=== PATIENT | female | born 1965 | race Caucasian/White ===

== ENCOUNTER 2017-01-13 22:29 | Emergency (ER) | payer MEDICAID ==
--- NOTE | 2017-01-14 19:14 | ER ---
ADMIT: 01/13/2017 RM/LOC: ER [facility] MR#: [id number] [address] [place], [place] [address] [address] [place] [address] Emergency Room Report SEX: F AGE: 51 : 1965 DATE: 01/13/2017 HISTORY OF PRESENT ILLNESS: The patient is a 51-year-old female with past medical history of bipolar, schizophrenia, came to the ER with chief complaint of 2 days of left ankle pain. The patient was able to ambulate without difficulty on the left ankle and denies any trauma. The patient states the pain is mostly on the lateral malleolus area. The patient denies similar pain in the past. PHYSICAL EXAMINATION: GENERAL: The patient was in no obvious pain or distress, ambulating without difficulty. Alert, oriented to person, place, and time, afebrile. HEAD AND NECK: Exam is noncontributory. CHEST: Clear bilaterally. ABDOMEN: Soft. NEUROVASCULAR: Normal. EXTREMITIES: Normal range of motion in all the joints including the left ankle joint are normal actively and passively without any pain or discomfort. There is no swelling over the area. There is no tenderness over the lateral and medial malleolus. IMAGING DATA: X-ray of the left ankle did not show any abnormalities or pathology or fracture. PLAN: The patient is stable to be discharged to home with return precautions, and follow up with the primary doctor as needed. The patient acknowledged she understood the plan and agreed with it. Jovanny Medina MD/ wesly JOB #: [id number] CC: Jovanny Medina MD, Attending Physician Nhan Davis MD, Family Physician
== END 2017-01-14 00:42 | disposition home or self-care (01) ==
LOC: ER 22:29
DX: M25.562 Pain in left knee (principal); F31.9 Bipolar disorder, unspecified; F20.9 Schizophrenia, unspecified; Z90.710 Acquired absence of both cervix and uterus; Z88.2 Allergy status to sulfonamides; Z88.0 Allergy status to penicillin; Z88.1 Allergy status to other antibiotic agents

== ENCOUNTER 2017-01-27 01:47 | Emergency (ER) | payer MEDICAID ==
--- NOTE | 2017-01-29 04:09 | ER ---
ADMIT: 01/27/2017 RM/LOC: ER [facility] MR#: [id number] [address] [address] [address] [place] [place], [place] [id number] Emergency Room Report SEX: F AGE: 51 : 1965 DATE: 01/27/2017 CHIEF COMPLAINT: Sore throat. HISTORY OF PRESENT ILLNESS: The patient is a 51-year-old female, comes in with complaints of sore throat for the past 4 days. She states she does have some sinus drainage also. States she had, had some similar symptoms a couple weeks ago, was given a Z-Jay at her primary care physician's office at that time. She wondered if she has another one here today. She states that she has some bilateral ear pain, runny nose. She is not having any nausea, vomiting, or diarrhea and denies any chest pain, or cough. PAST MEDICAL HISTORY: Schizoaffective disorder, bipolar, PTSD, high blood pressure, COPD, osteoporosis. MEDICATIONS: See nurse's note. ALLERGIES: SEE NURSE'S NOTE. PHYSICAL EXAMINATION: VITAL SIGNS: Normal. She is afebrile. HEENT: Head is atraumatic. Pupils are equal, round, reactive to light. Posterior oropharynx is nonerythematous. She has some very mild edema of her mucosal membrane. No purulent drainage. No tenderness over her maxillary sinuses. TMs are normal bilaterally. NECK: Supple. There is no lymphadenopathy. HEART: Regular rate and rhythm. LUNGS: Clear to auscultation. SKIN: Warm and dry. MEDICAL DECISION MAKING: Based on the patient's complaints of my exam, I believe she likely has a viral infection. I informed her that antibiotics are not going to help with this, and she is not given a prescription for antibiotic at this time. She is discharged home to use Tylenol or Motrin for pain and any fevers. She is to drink plenty of fluids and she is told she can use salt water gargles and Chloraseptic Throat [place] for her sore throat. She is to follow up with Dr. Davis as needed. DIAGNOSIS: Viral syndrome. Ace Menjivar MD/ wesly JOB #: [id number] CC: Ace Menjivar MD, Attending Physician Nhan Davis MD, Family Physician
== END 2017-01-27 02:55 | disposition home or self-care (01) ==
LOC: ER 01:47
DX: B34.9 Viral infection, unspecified (principal); J44.9 Chronic obstructive pulmonary disease, unspecified; F25.0 Schizoaffective disorder, bipolar type

== ENCOUNTER → 2017-02-09 | Outpatient (CLI) | payer MEDICAID | END | disposition home or self-care (01) | LOC: RAD.S 02-04 15:00 | DX: R10.11 Right upper quadrant pain (principal); K80.20 Calculus of gallbladder without cholecystitis without obstruction; K76.0 Fatty (change of) liver, not elsewhere classified; K76.89 Other specified diseases of liver ==

== ENCOUNTER 2017-02-21 09:10 | Day surgery (SDC) | payer MEDICAID | END 2017-02-21 15:06 | disposition home or self-care (01) | DX: K80.10 Calculus of gallbladder with chronic cholecystitis without obstruction (principal); J45.909 Unspecified asthma, uncomplicated; I10 Essential (primary) hypertension; K21.9 Gastro-esophageal reflux disease without esophagitis; F41.9 Anxiety disorder, unspecified; E11.9 Type 2 diabetes mellitus without complications; E03.9 Hypothyroidism, unspecified; G89.29 Other chronic pain; Z88.6 Allergy status to analgesic agent; Z88.0 Allergy status to penicillin; Z88.8 Allergy status to other drugs, medicaments and biological substances; Z79.899 Other long term (current) drug therapy; Z98.890 Other specified postprocedural states; Z90.710 Acquired absence of both cervix and uterus; Z98.51 Tubal ligation status; Z87.891 Personal history of nicotine dependence ==

== ENCOUNTER 2017-03-14 22:50 | Emergency (ER) | payer MEDICAID ==
--- NOTE | 2017-03-18 19:14 | ER ---
ADMIT: 03/14/2017 RM/LOC: ER [facility] MR#: [id number] [address] [address] [address] [place], [place] [id number] Emergency Room Report SEX: F AGE: 52 : 1965 DATE: 03/14/2017 HISTORY OF PRESENT ILLNESS: The patient is a 52-year-old female with a recent cholecystectomy, came to the ER with chief complaint of generalized abdominal pain. Per patient, pain is mostly epigastric, but it sometimes goes up and down and she had it for 3 hours. The patient states she has multiple episodes of diarrhea after the surgery too. PHYSICAL EXAMINATION: VITAL SIGNS: The patient is afebrile. Vitals are stable. GENERAL: The patient is in no obvious distress. The patient is alert and awake. HEAD and NECK: Normal. CHEST: Clear. HEART: Normal heart sounds. ABDOMEN: Soft, nontender. No rebound. No guarding. LABORATORY DATA: UA was negative. CBC had WBC of 9.9, with hemoglobin of 12.5, creatinine level of 0.8, with glucose of 96. Lipase was 121, with AST and ALT of 13 and 20 respectively. EMERGENCY ROOM COURSE: The patient received IV fluid 1 L normal saline. The patient was prescribed morphine p.r.n. for pain IV. The patient refused to take morphine and states sometimes she does not feel good with morphine and she gets allergic to it, but in the allergy list, there is no morphine listed. The patient did not get morphine. After just receiving the IV fluids and withdrawal of the normal lab works, the patient was re-examined, the patient states at the moment is pain-free and she believed that the IV fluid resolved the pain. The patient was stable and did not develop any new symptoms and discharged to home. Jovanny Medina MD/ wesly JOB #: [id number] CC: Kg Jean MD, Attending Physician Nhan Davis MD, Family Physician
== END 2017-03-15 01:26 | disposition home or self-care (01) ==
LOC: ER 22:50
DX: R10.9 Unspecified abdominal pain (principal); R19.7 Diarrhea, unspecified; I10 Essential (primary) hypertension; E11.9 Type 2 diabetes mellitus without complications; J44.9 Chronic obstructive pulmonary disease, unspecified; Z90.49 Acquired absence of other specified parts of digestive tract; Z90.710 Acquired absence of both cervix and uterus

== ENCOUNTER 2017-06-16 13:43 | Emergency (ER) | payer MEDICAID, OTHER ==
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
== END 2017-06-16 16:12 | disposition home or self-care (01) ==
LOC: ER 13:43
DX: S13.4XXA Sprain of ligaments of cervical spine, initial encounter (principal); I10 Essential (primary) hypertension; F17.210 Nicotine dependence, cigarettes, uncomplicated; F31.9 Bipolar disorder, unspecified; Z98.890 Other specified postprocedural states; Z79.899 Other long term (current) drug therapy; Z88.0 Allergy status to penicillin; Z88.2 Allergy status to sulfonamides; Z88.5 Allergy status to narcotic agent; Z88.8 Allergy status to other drugs, medicaments and biological substances; V49.3XXA Car occupant (driver) (passenger) injured in unspecified nontraffic accident, initial encounter